=== PATIENT | female | born 1975 | race Caucasian/White ===

== ENCOUNTER 2022-05-12 07:05 | Outpatient (CLI) | payer BC, SELFPAY ==
--- NOTE | 2022-05-12 07:15 | CRLHL7_ITS ---
For Patients: As a result of the 21st Century Cures Act, medical imaging exams and procedure reports are released immediately into your electronic medical record. You may view this report before your referring provider. If you have questions, please contact your health care provider. BILATERAL BREAST MRI WITHOUT AND WITH GADOLINIUM CLINICAL HISTORY: 46-year-old female with elevated risk of breast cancer, prior biopsy demonstrating ADH, status post excision, family history INDICATION FOR BREAST MRI: Screening breast MRI in this high-risk woman. COMPARISON STUDIES: Breast MRI 04/30/2021, mammogram 10/27/2021 CONTRAST: 15 cc of dotarem TECHNIQUE: The patient was positioned prone using a breast coil. Multiple imaging sequences were obtained using 1-1.5 mm thick slices with no gap. The image sequences include T2-weighted STIR in the axial plane, T1-weighted nonfat-saturated gradient echo in the axial plane, pre- and post-contrast T1-weighted FLASH 3D with fat suppression in the axial plane, and T1-weighted FLASH high resolution 3D with fat suppression in the sagittal plane. Image post-processing was performed on a [employer] workstation. Complex 3D rendering including maximum intensity projections (MIPS) and volumetric renderings were obtained to optimize visualization of the extent of pathology and relationship to the nipple, skin, and chest wall. This aids in determining feasibility of breast conservation surgery. Subtraction, multiplanar reconstruction, mean curve determination, and angiogenesis mapping were also performed. The study was technically adequate. FINDINGS: Amount of Fibroglandular Tissue: Heterogeneous fibroglandular tissue. Breast Background Enhancement: Moderate RIGHT Breast: No suspicious areas of enhancement. LEFT Breast: No suspicious areas of enhancement. Artifact from a biopsy marker clip is present. Lymph Nodes: No adenopathy. IMPRESSIONS AND RECOMMENDATIONS: Benign, there is no MRI evidence of malignancy. Continue annual screening mammography and as clinically indicated screening breast MRI. BI-RADS: 2 Dictated by Pili Riggs MD @ 05/13/2022 8:41:31 AM (Electronically Signed)
== END 2022-05-12 07:06 | disposition home or self-care (01) ==
PROVIDERS: PCP Physician Assistant Medical; Visit Provider Physician Assistant Medical
DX: Z12.31 Encounter for screening mammogram for malignant neoplasm of breast (principal); Z91.89 Other specified personal risk factors, not elsewhere classified
CPT/HCPCS: 77049; A9575

== ENCOUNTER 2022-07-06 07:05 | Outpatient (CLI) | payer BC, SELFPAY ==
--- NOTE | 2022-07-06 07:15 | CRLHL7_ITS ---
For Patients: As a result of the Century Cures Act, medical imaging exams and procedure reports are released immediately into your electronic medical record. You may view this report before your referring provider. If you have questions, please contact your health care provider. Indication: Liver mass. Comparison: MRI abdomen 07/01/2021 Technique: MRI of the abdomen was performed with the following sequences: axial and coronal T2 weighted, axial T2 fat saturated, axial diffusion, axial T1 in and out of phase axial and coronal 3D T1 weighted before and after intravenous contrast administration. Contrast: 15 mL Dotarem Findings: Liver: Noncirrhotic morphology. Subtle 1.5 cm segment 8 lesion best seen on T1 in phase imaging (series 6, image 16) as well as on equilibrium phase postcontrast imaging (series 20, image 29), less conspicuous than on prior examinations. No new enhancing liver lesions. Scattered stable benign-appearing tiny cysts. Gallbladder: Unremarkable. Biliary system: No biliary distention, filling defect, mass or stricture. Pancreas: Normal caliber main pancreatic duct. No discrete pancreatic lesions. Other abdominal organs: Spleen, kidneys, and adrenal glands are normal. Bone marrow signal: Stable vertebral body hemangiomas. Other findings: No lymphadenopathy or ascites Impression: 1. Stable subtle segment 8 lesion with indeterminate but benign-appearing imaging features, stable since 05/05/2020. Dictated by Flex Hutchinson MD @ 07/09/2022 10:13:32 AM (Electronically Signed)
== END 2022-07-06 07:06 | disposition home or self-care (01) ==
LOC: MRI 07:06
PROVIDERS: PCP Physician Assistant Medical; Visit Provider Physician Assistant Medical
DX: R16.0 Hepatomegaly, not elsewhere classified (principal)
CPT/HCPCS: 74183; A9575

== ENCOUNTER 2023-07-01 17:10 | Outpatient (CLI) | payer BC, SELFPAY ==
--- NOTE | 2023-07-01 17:30 | MR_ITS ---
Patient: HANSEL FLETCHER Facility:?[facility] Patient ID:?[id number] Site Patient ID:?[id number]. 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 Ultrasound-guided biopsy of a mass at 5 o`clock in the LEFT breast in 2019 showed a benign fibroadenoma. INDICATION FOR BREAST MRI: High-risk screening breast MRI. COMPARISON STUDIES: Breast MRIs 05/12/2022 and 04/30/2021. Mammograms 10/29/2022 and 10/27/2021. CONTRAST: 20 mL Dotarem. TECHNIQUE: The patient was positioned prone using a breast coil. Multiple imaging sequences were obtained using 1-1.5 mm thick slices with no gap. The image sequences include T2-weighted STIR in the axial plane, T1-weighted nonfat-saturated gradient echo in the axial plane, pre- and post-contrast T1-weighted FLASH 3D with fat suppression in the axial plane, and T1-weighted FLASH high resolution 3D with fat suppression in the sagittal plane. Image post-processing was performed on a [employer] workstation. Complex 3D rendering including maximum intensity projections (MIPS) and volumetric renderings were obtained to optimize visualization of the extent of pathology and relationship to the nipple, skin, and chest wall. This aids in determining feasibility of breast conservation surgery. Subtraction, multiplanar reconstruction, mean curve determination, and angiogenesis mapping were also performed. The study was technically adequate. FINDINGS: Amount of Fibroglandular Tissue: Heterogeneous fibroglandular tissue. Breast Background Enhancement: Mild. RIGHT Breast: Scattered benign cysts. There is no suspicious mass or enhancement within the breast. LEFT Breast: In the retroareolar breast at middle depth, 8 cm posterior to the nipple there is a 1.2 x 1.2 x 1.1 cm irregular enhancing mass which demonstrates mixed kinetics including areas of fast initial and washout delayed phase enhancement. There is susceptibility artifact in the lower outer breast from a clip placed at the time of prior benign biopsy. Scattered benign cysts. Lymph Nodes: There is a LEFT axillary lymph node which appears to have thickened cortex measuring 0.8 cm in short axis. No abnormal morphology lymph nodes on the right. IMPRESSIONS AND RECOMMENDATIONS: 1. There is a 1.2 cm mass in the retroareolar LEFT breast at middle depth which is suspicious. Recommend targeted LEFT breast ultrasound and possible ultrasound-guided biopsy. If there is no sonographic correlate, then MRI-guided biopsy would be recommended. 2. No MRI evidence of malignancy in the RIGHT breast. 3. LEFT axillary lymph node appears to have a thickened cortex. Recommend targeted LEFT axillary ultrasound for further evaluation. BI-RADS Category 4: Suspicious Dictated by Desiree Padron MD @ 07/07/2023 11:26:38 AM jj/Dictated by: Desiree Padron MD @ 07/07/2023 11:46:00 AM Signed by:Elysia Padron MD @07/07/2023 3:44:24 PM (Electronic Signature)
== END 2023-07-01 17:11 | disposition home or self-care (01) ==
LOC: MRI 17:11
PROVIDERS: PCP Physician Assistant Medical; Visit Provider Physician Assistant Medical
DX: Z12.39 Encounter for other screening for malignant neoplasm of breast (principal); R59.9 Enlarged lymph nodes, unspecified
CPT/HCPCS: 77049; A9575

== ENCOUNTER 2023-07-19 10:57 | Outpatient (CLI) | payer BC, SELFPAY ==
--- NOTE | 2023-07-19 11:15 | US_ITS ---
Patient: HANSEL FLETCHER Facility:?[facility] Patient ID:?[id number] Site Patient ID:?[id number]. Site :?1975 Study:?US-Breast Procedure DR TURCIOS TO READ-07/19/2023 12:00:18 PM Ordering Physician:?ROLF BUSTAMANTE Final Report: ULTRASOUND-GUIDED BREAST BIOPSY AND POST-BIOPSY DIGITAL MAMMOGRAM FOR BIOPSY MARKER PLACEMENT CLINICAL HISTORY: Indeterminate nodule on MRI and ultrasound. COMPARISON STUDIES: Ultrasound 07/19/2023, MRI 07/01/2023. TECHNIQUE: Real-time ultrasound with image documentation was used for targeting the breast lesion. Core biopsy specimens were obtained using an automated gun with a 18- gauge biopsy needle. Post-biopsy CC and ML digital mammograms were obtained to document position of the biopsy marker. CONSENT and TIME OUT: The procedure, risks, and alternatives were explained to the patient and a consent was signed. [place] Protocol was followed including pre-procedure verification that relevant information/documentation was available, reviewed and properly matched to the patient; consent accurate and complete; and equipment and supplies available. Time Out was conducted just prior to starting procedure to verify the four required elements: patient identity, correct side/site marked (if applicable), procedure, relevant images/results properly labeled and displayed (if applicable). PROCEDURE: The patient was positioned supine on the ultrasound table. The breast was prepped with ChloraPrep. 8 cc of 1 percent lidocaine used for local anesthesia. Core samples were obtained. A sterile metal biopsy clip was placed percutaneously to chata the lesion position within the breast. The specimens were placed in 10% formalin and sent to the pathology department. Pressure was held on the biopsy site until all bleeding subsided. The skin incision was closed with Steri-Strips. An ice pack was positioned over the biopsy site. Post-biopsy instructions were reviewed with the patient, and a written copy was given to her. LATERALITY: LEFT breast. LESION: Hypoechoic solid nodule measuring 9 x 7 x 16 millimeters at 6 o`clock 4 cm from the nipple. SUSPICION FOR MALIGNANCY: Intermediate, probable fibroadenoma. NUMBER OF SAMPLES: 6. BIOPSY CLIP SHAPE: HydroMARK coil. PROXIMITY OF CLIP TO TARGET: Immediately adjacent to the lesion. IMPRESSION: Ultrasound-guided breast biopsy. When the pathology report is available, an addendum to this report will be made. ACR not applicable Dictated by Donovan Turcios MD @ 07/19/2023 12:07:24 PM cody/Dictated by: Donovan Turcios MD @ 07/19/2023 12:07:00 PM Signed by:?Donovan Turcios MD @07/19/2023 1:44:07 PM ADDENDUM: Pathology consistent with benign fibroadenoma. This is concordant. Resume screening protocol. Dictated by: Donovan Turcios MD @07/22/2023 11:04:54 AM / KANDICE:cody Signed by:?Donovan Turcios MD @07/22/2023 12:12:10 PM (Electronic Signature)
--- NOTE | 2023-07-19 11:15 | US_ITS ---
Patient: HANSEL FLETCHER Facility:?[facility] Patient ID:?[id number] Site Patient ID:?[id number]. Site :?1975 Study:?US-Breast Left DR TURCIOS TO READ-07/19/2023 11:59:38 AM Ordering Physician:?ROLF BUSTAMANTE Final Report: LEFT BREAST ULTRASOUND CLINICAL HISTORY: Indeterminate lesion on breast MRI. COMPARISON: MRI breast 07/01/2023. TECHNIQUE: Real-time ultrasound imaging of LEFT breast with imaging documentation. FINDINGS: Targeted sonogram LEFT breast 6 o`clock 4 cm from the nipple performed. In this location, there is a solid hypoechoic nodule measuring 9 x 7 x 16 mm. IMPRESSION: Indeterminate hypoechoic nodule left breast 6 o`clock 4 cm from the nipple corresponding to the MRI measuring 9 x 7 x 16 mm. RECOMMENDATIONS: Ultrasound-guided core needle biopsy will be performed subsequently. BI-RADS Category 4: Suspicious Dictated by Donovan Turcios MD @ 07/19/2023 12:05:47 PM PT/Dictated by: Donovan Turcios MD @ 07/19/2023 12:05:00 PM Signed by:?Donovan Turcios MD @07/19/2023 1:44:06 PM (Electronic Signature)
--- NOTE | 2023-07-19 12:00 | MM_ITS ---
Patient: HANSEL FLETCHER Facility:?[facility] Patient ID:?[id number] Site Patient ID:?[id number]. Site :?1975 Study:?XRay-Breast Left 2D w/ CAD POST CLIP PLACEMENT-07/19/2023 12:01:18 PM Ordering Physician:?Misti Wallace Final Report: PLEASE SEE ULTRASOUND-GUIDED LEFT BREAST BIOPSY PERFORMED SAME DAY CRL:cody ross/Dictated by: Donovan Smith MD @ 07/19/2023 12:07:00 PM Signed by:?Donovan Smith MD @07/19/2023 1:44:09 PM (Electronic Signature)
== END 2023-07-19 10:58 | disposition home or self-care (01) ==
LOC: US 10:58
PROVIDERS: PCP Physician Assistant Medical; Visit Provider Physician Assistant Medical
DX: N63.20 Unspecified lump in the left breast, unspecified quadrant (principal); D24.2 Benign neoplasm of left breast
CPT/HCPCS: 19083; 76642; 77065; 88305; A4648; A4649

== ENCOUNTER 2024-01-06 17:17 | Emergency (ER) | payer BC, SELFPAY ==
[2024-01-06] VITALS (13 sets, daily range): BP systolic 134–156; BP diastolic 89–117; PULSE 88–101; RESP 18; TEMP 37.1; O2SAT 98–100; BMI 31.0
--- NOTE | 2024-01-06 17:32 | CRLHL7_ITS ---
For Patients: As a result of the Century Cures Act, medical imaging exams and procedure reports are released immediately into your electronic medical record. You may view this report before your referring provider. If you have questions, please contact your health care provider. INDICATION: Acute stroke, arm and face tingling. TECHNIQUE: CTA neck with contrast bolus tracking, 3D angiographic rendering using maximum intensity projection (MIP) and images permanently archived. FINDINGS: There is no significant carotid artery stenosis or dissection. There is no significant vertebral artery stenosis or dissection. Multiple indeterminate thyroid nodules are present, largest on the right measuring approximately 16 millimeters. The cervical spine is in normal alignment. IMPRESSION: 1. No significant carotid or vertebral artery stenosis or dissection. 2. Indeterminate thyroid nodules with the largest on the right measuring approximately 16 millimeters. Recommend ultrasound for further evaluation. Please note that all CT scans at this facility use dose modulation, iterative reconstruction, and/or weight-based dosing when appropriate to reduce radiation dose to as low as reasonably achievable. Dictated by Ion Belcher MD @ 01/07/2024 12:00:37 AM (Electronically Signed)
--- NOTE | 2024-01-06 17:32 | CRLHL7_ITS ---
For Patients: As a result of the Century Cures Act, medical imaging exams and procedure reports are released immediately into your electronic medical record. You may view this report before your referring provider. If you have questions, please contact your health care provider. INDICATION: Acute stroke, arm and face tingling. TECHNIQUE: CTA head with contrast bolus tracking, 3D angiographic rendering using maximum intensity projection (MIP) and images permanently archived. FINDINGS: There is normal opacification of the intracranial vasculature. There is no large vessel occlusion. No aneurysm is identified. IMPRESSION: Unremarkable head CTA. Please note that all CT scans at this facility use dose modulation, iterative reconstruction, and/or weight-based dosing when appropriate to reduce radiation dose to as low as reasonably achievable. Dictated by Ion Belcher MD @ 01/06/2024 11:58:08 PM (Electronically Signed)
--- NOTE | 2024-01-06 17:32 | CRLHL7_ITS ---
For Patients: As a result of the Century Cures Act, medical imaging exams and procedure reports are released immediately into your electronic medical record. You may view this report before your referring provider. If you have questions, please contact your health care provider. INDICATION: STROKE SYMPTOMS, HX STROKE. ARM AND FACE TINGLING. TECHNIQUE: CT head without contrast. COMPARISON: MRI brain dated 03/30/2019. FINDINGS: CSF spaces: Within normal limits for age. Brain parenchyma and extra-axial spaces: Small focus of hypoattenuation corresponding to the previously visualized left posterior frontal chronic infarct. The mojica-white differentiation is otherwise normal. No sign of acute ischemia. No sign of mass, hemorrhage, or midline shift. No extra-axial fluid collection. Skull base and calvarium: The mastoid air cells demonstrate no acute or significant findings. Moderate left sphenoid sinus mucosal thickening. The visualized orbits are grossly unremarkable. No skull fractures. IMPRESSION: No sign of acute ischemia or intracranial hemorrhage. Please note that all CT scans at this facility use dose modulation, iterative reconstruction, and/or weight-based dosing when appropriate to reduce radiation dose to as low as reasonably achievable. Dictated by Markus Cerrato MD @ 01/06/2024 6:23:43 PM (Electronically Signed)
--- NOTE | 2024-01-06 17:41 | ED_ITS ---
HPI - General Adult General Chief complaint: Neuro Symptoms/Altered Deficit Stated complaint: stroke symptoms Time Seen by Provider: 01/06/24 17:35 Source: patient Mode of arrival: ambulatory Limitations: no limitations History of Present Illness HPI narrative: 48-year-old female with a history of ischemic stroke a few years ago presents today with left-sided tingling and numbness. Patient states that approximately 1/2 hour ago she came home from work in all of a sudden the left side of her face began to feel tingly it went into her left arm. She sat down to grab her phone to call her significant other in her hand felt like her fingers were all swollen and it was not moving properly. She was able to dial. She denies weakness of the upper extremity or the lower extremity. She denies changes in her speech, denies confusion blurry vision or changes in her hearing. She states that her previous stroke started out in a similar fashion with tingling in her left face. She currently takes lisinopril for blood pressure control, atorvastatin and baby aspirin. She also takes hydroxyzine for anxiety. There is no family history of strokes. Patient currently still symptomatic. Review of Systems Status of ROS: Reports: 10 or more systems reviewed and unremarkable except as noted in History and below [facility] Social History Smoking Status: Never smoker How often do you have a drink containing alcohol: never How often do you have six or more drinks on one occasion: Never AUDIT-C Alcohol total score: 0 Non-prescribed substance use: denies use service: No Exam Narrative: Exam Narrative: Well-nourished well-developed patient in no acute distress. Alert and oriented. Answers questions appropriately. Mood and affect are appropriate. Thoughts are goal oriented and rational. No tangential or magical thinking noted. Patient speaks in full sentences without needing to catch their breath. No slurred speech. No word-finding difficulty. Normal facial symmetry. HEENT: Normocephalic atraumatic. Pupils are equally round reactive to light. Extraocular muscles are intact. Conjunctivae are moist without any icterus noted. Moist mucous membranes. Posterior pharynx is normal. Neck is soft without any lymphadenopathy or thyromegaly. No masses are appreciated. Cardiovascular: Heart is regular rate and rhythm S1 and S2 are present without any murmurs. Lungs: Clear to auscultation bilaterally no wheezes rhonchi or rales are apprec iated. Patient takes deep breaths without any discomfort. Abdomen: Soft and nontender nondistended with normal bowel sounds. No guarding or rebound. No masses or organomegaly appreciated. Extremities: Bilateral lower extremities are without edema. Normal DP and PT pulses. Skin: Well perfused without any obvious rashes. Strength is 5/5 of the upper and lower extremities. 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 Reflexes are 2+ and symmetric at the knees. Cranial nerves 3-12 are normal. [id number]-[id number] is normal. There is no nystagmus either horizontally or vertically. Gait is normal. Const: Vital Signs, click to edit/add: Vital Signs - 24 hr 01/06/24 17:25 01/06/24 17:32 Temperature 98.8 F Pulse Rate [Pulse Oximeter] 93 Respiratory Rate 18 Blood Pressure [Ri ght Upper Arm] 156/93 H Pulse Oximetry 99 98 Oxygen Delivery Me thod Room Air Course Course ED Course: After initial examination which was unremarkable, patient went straight to head CT. Dr. Montalvo, neurology at [place], was aware of the patient and she was able to view the images as soon as they were done. There is no evidence of any occlusion noted on CTA, head CT unremarkable. Dr. Montalvo recommends that the patient be transferred to [place] for MRI as we do not have that capability today or tomorrow. EKG, read by me, shows sinus tachycardia with a pulse of 104, incomplete right bundle-branch block. CBC is normal. Chemistries are normal. LFTs are unremarkable. Normal troponin. Normal CRP. Negative test. TSH pending. I did re-evaluate the patient after her imaging, she stated that her symptoms are getting better. Aspirin 325 mg p.o. given in the ED. 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 At that time she had paresthesia over the right face arm and leg as well as word finding difficulty. She was treated with IV thrombolysis at that time. Of note, word-finding difficulty was not endorsed with today's event. Vital Signs Vital signs: Initial Vital Signs Temperature 98.8 F 01/06/24 17:25 Temperature Source Temporal Artery Scan 01/06/24 17:25 Pulse Rate 93 01/06/24 17:25 Pulse Rhythm Regular 01/06/24 17:25 Respiratory Rate 18 01/06/24 17:25 Blood Pressure 156/93 H 01/06/24 17:25 Blood Pressure Mean 114 H 01/06/24 17:25 Blood Pressure Position Sitting 01/06/24 17:25 Pulse Oximetry 99 01/06/24 17:25 Oxygen Delivery Method Room Air 01/06/24 17:25 Vital Signs Temperature 98.8 F 01/06/24 17:25 Pulse Rate 93 01/06/24 17:25 Respiratory Rate 18 01/06/24 17:25 Blood Pressure 156/93 H 01/06/24 17:25 Pulse Oximetry 99 01/06/24 17:25 Oxygen Delivery Method Room Air 01/06/24 17:25 Temperature 98.8 F 01/06/24 17:25 Pulse Rate 93 01/06/24 17:25 Respiratory Rate 18 01/06/24 17:25 Blood Pressure 156/93 H 01/06/24 17:25 Pulse Oximetry 98 01/06/24 17:32 Oxygen Delivery Method Room Air 01/06/24 17:25 Medical Decision Making MDM Narrative Medical decision making narrative: 48-year-old female history of stroke presenting with stroke-like symptoms. Patient will be transferred to [facility] for further management at this time. No anticoagulants aside from increased dose of aspirin was recommended per Dr. Montalvo at this time. Medical Records Medical records reviewed: Yes I reviewed the patient's medical records Lab Data Lab results reviewed: Yes I reviewed the patient's lab results Labs: Lab Results 01/06/24 01/06/24 Range/Units 17:30 17:55 WBC 8.01 (4.50-11.00) K/uL RBC 4.86 (4.00-5.20) m/uL Hgb 14.1 (12.0-16.0) gm/dL Hct 43.9 (33.0-51.0) % MCV 90 (80-100) fL MCH 29 (26-34) pg MCHC 32 (32-36) gm/dL RDW Coeff of Emily 13.5 (11.5-15.5) % Plt Count 337 (140-440) K/uL Neut % (Auto) 50.4 (42.0-72.0) % Lymph % (Auto) 40.2 (20-44) % Edmunds % (Auto) 6.6 (0.0-11.0) % Eos % (Auto) 1.9 (0.0-7.0) % Baso % (Auto) 0.7 (0.0-3.0) % Neut # (Auto) 4.03 (1.7-7.0) K/uL Lymph # (Auto) 3.22 H (0.90-2.90) K/uL Edmunds # (Auto) 0.50 (0.00-0.90) K/UL Eos # (Auto) 0.15 (0.00-0.50) K/uL Baso # (Auto) 0.06 (0.00-0.30) K/uL Abs Immat Gran (auto) 0.02 (0.00-0.30) K/uL Imm/Tot Granulo (auto) 0.2 % Sodium 138 (135-149) mmol/L Potassium 3.9 (3.6-5.1) mmol/L Chloride 103 (96-114) mmol/L Carbon Dioxide 23 (20-32) mmol/L Anion Gap 12 (7-15) mEq/L BUN 22 (5-24) mg/dL Creatinine 0.7 (0.5-1.5) mg/dL Estimated Creat Clear 104.95 Estimated GFR 108 ml/min Glucose 103 (60-115) mg/dL Lactate 0.6 (0.5-1.9) mmol/L Calcium 9.6 (8.4-10.6) mg/dL Magnesium 2.3 (1.5-2.6) mg/dL Total Bilirubin 0.8 (0.1-1.5) mg/dL Direct Bilirubin 0.2 (0.0-0.5) mg/dL AST 34 (12-35) U/L ALT 40 H (4-35) U/L Alkaline Phosphatase 82 (40-150) U/L Troponin I < 0.01 L (0.01-0.04) ng/mL C-Reactive Protein < 0.5 L (0.5-1.0) mg/dL Total Protein 8.5 H (6.0-8.3) g/dL Albumin 5.2 H (3.3-5.0) g/dL Urine HCG, Qual Negative (Negative) Imaging Data CT scan - head: Attestation: I have reviewed the pertinent imaging results. Radiologist's impression: CT head without contrast. COMPARISON: MRI brain dated 03/30/2019. FINDINGS: CSF spaces: Within normal limits for age. Brain parenchyma and extra-axial spaces: Small focus of hypoattenuation corresponding to the previously visualized left posterior frontal chronic infarct. The mojica-white differentiation is otherwise normal. No sign of acute ischemia. No sign of mass, hemorrhage, or midline shift. No extra-axial fluid collection. Skull base and calvarium: The mastoid air cells demonstrate no acute or significant findings. Moderate left sphenoid sinus mucosal thickening. The visualized orbits are grossly unremarkable. No skull fractures. IMPRESSION: No sign of acute ischemia or intracranial hemorrhage. Head CTA: Attestation: I have reviewed the pertinent imaging results. Radiologist's impression: Preliminary Report: COMPARISON: None. IMPRESSION: CTA head: Unremarkable. No sign of occlusion or significant aneurysm. CTA neck: Unremarkable. No sign of dissection or significant stenosis. Neck CTA: Attestation: I have reviewed the pertinent imaging results. Radiologist's impression: Preliminary Report: COMPARISON: None. IMPRESSION: CTA head: Unremarkable. No sign of occlusion or significant aneurysm. CTA neck: Unremarkable. No sign of dissection or significant stenosis. ECG Data Attestation: I personally reviewed and interpreted this ECG as follows: Discharge Plan Discharge Clinical Impression: Stroke-like symptoms Patient Disposition: [facility] Condition: Stable Follow Up/Referrals: Misti Wallace PA-C [Primary Care Provider] - Stand Alone Forms: [employer] Info Instructions
[2024-01-06 17:55] LABS: Lactate* 0.6 mmol/L (0.5-1.9)
[2024-01-06 18:00] LABS: Basophils Absolute Auto 0.06 K/uL (0.00-0.30); Basophils Percent Auto 0.7 % (0.0-3.0); Eosinophils Absolute Auto 0.15 K/uL (0.00-0.50); Eosinophils Percent Auto 1.9 % (0.0-7.0); Hematocrit 43.9 % (33.0-51.0); Hemoglobin* 14.1 gm/dL (12.0-16.0); Immature Granulocytes Abs Auto 0.02 K/uL (0.00-0.30); Immature Granulocytes Pct Auto 0.2 %; Lymphocytes Absolute Auto 3.22 K/uL (0.90-2.90); Lymphocytes Percent Auto 40.2 % (20-44); Mean Corpuscular HGB Conc 32 gm/dL (32-36); Mean Corpuscular Hemoglobin 29 pg (26-34); Mean Corpuscular Volume 90 fL (80-100); Monocytes Percent Auto 6.6 % (0.0-11.0); Neutrophils Absolute Auto 4.03 K/uL (1.7-7.0); Neutrophils Percent Auto 50.4 % (42.0-72.0); Platelet Count* 337 K/uL (140-440); RDW Coefficient of Variation % 13.5 % (11.5-15.5); Red Blood Count 4.86 m/uL (4.00-5.20); White Blood Count* 8.01 K/uL (4.50-11.00)
[2024-01-06 18:02] LABS: Albumin* 5.2 g/dL (3.3-5.0); Chloride* 103 mmol/L (96-114); Slide Review Reflex No
[2024-01-06 18:03] LABS: Potassium* 3.9 mmol/L (3.6-5.1); Sodium* 138 mmol/L (135-149)
[2024-01-06 18:05] LABS: Creatinine* 0.7 mg/dL (0.5-1.5); Est. Creatinine Clearance* 104.95; Estimated Glomerular Filt Rate 108 ml/min
[2024-01-06 18:05] LABS: Ur HCG Qualitative* Negative (Negative)
[2024-01-06 18:06] LABS: Alanine Aminotransferase* 40 U/L (4-35); Alkaline Phosphatase* 82 U/L (40-150); Anion Gap 12 mEq/L (7-15); Aspartate Amino Transferase* 34 U/L (12-35); Bilirubin Direct* 0.2 mg/dL (0.0-0.5); Bilirubin Total* 0.8 mg/dL (0.1-1.5); Blood Urea Nitrogen* 22 mg/dL (5-24); Calcium* 9.6 mg/dL (8.4-10.6); Carbon Dioxide* 23 mmol/L (20-32); Glucose* 103 mg/dL (60-115); Total Protein* 8.5 g/dL (6.0-8.3)
[2024-01-06 18:07] LABS: Magnesium* 2.3 mg/dL (1.5-2.6)
[2024-01-06 18:14] LABS: C Reactive Protein* < 0.5 mg/dL (0.5-1.0)
[2024-01-06 18:18] LABS: Troponin I* < 0.01 ng/mL (0.01-0.04)
== END 2024-01-06 20:43 | disposition short-term general hospital (02) ==
PROVIDERS: Emergency Provider Family Medicine; PCP Physician Assistant Medical
DX: R29.818 Other symptoms and signs involving the nervous system (principal)
CPT/HCPCS: 36415; 70450; 70496; 70498; 80048; 80076; 81025; 82962; 83605; 83735; 84443; 84484; 85025; 86140; 93005; 94761; 99285; 99291; Q9967

== ENCOUNTER 2024-01-06 20:40 | Outpatient (CLI) | payer BC, SELFPAY | END 2024-01-06 20:41 | disposition home or self-care (01) | LOC: AMB 01-08 06:40 | PROVIDERS: PCP Physician Assistant Medical; Visit Provider Family Medicine | DX: R29.90 Unspecified symptoms and signs involving the nervous system (principal) | CPT/HCPCS: A0425; A0427 ==

== ENCOUNTER 2024-07-02 07:02 | Outpatient (CLI) | payer BC, SELFPAY ==
--- NOTE | 2024-07-02 07:15 | CRLHL7_ITS ---
For Patients: As a result of the Century Cures Act, medical imaging exams and procedure reports are released immediately into your electronic medical record. You may view this report before your referring provider. If you have questions, please contact your health care provider. BILATERAL BREAST MRI WITHOUT AND WITH GADOLINIUM CLINICAL HISTORY: 48-year-old female with elevated risk of breast cancer due to prior breast biopsy demonstrating ADH. Strong family history. INDICATION FOR BREAST MRI: Screening breast MRI in this high-risk woman. COMPARISON STUDIES: Mammogram 10/29/2022. CONTRAST: 23 mL Dotarem IV. TECHNIQUE: The patient was positioned prone using a breast coil. Multiple imaging sequences were obtained using 1-1.5 mm thick slices with no gap. The image sequences include T2-weighted STIR in the axial plane, T1-weighted nonfat-saturated gradient echo in the axial plane, pre- and post-contrast T1-weighted FLASH 3D with fat suppression in the axial plane, and T1-weighted FLASH high resolution 3D with fat suppression in the sagittal plane. Image post-processing was performed on a [employer] workstation. Complex 3D rendering including maximum intensity projections (MIPS) and volumetric renderings were obtained to optimize visualization of the extent of pathology and relationship to the nipple, skin, and chest wall. This aids in determining feasibility of breast conservation surgery. Subtraction, multiplanar reconstruction, mean curve determination, and angiogenesis mapping were also performed. The study was technically adequate. FINDINGS: Amount of Fibroglandular Tissue: Heterogeneous fibroglandular tissue. Breast Background Enhancement: Moderate. RIGHT Breast: There are no suspicious areas of enhancement. LEFT Breast: Artifact from biopsy marker clips is present at sites or prior benign biopsy. There are no suspicious areas of enhancement. Lymph Nodes: No adenopathy. IMPRESSIONS AND RECOMMENDATIONS: Benign, there is no MRI evidence of malignancy. Continue annual screening mammography. Patient is past due for screening mammography, as the last available comparison is from October 2022. Continue annual supplemental screening with breast MRI as clinically indicated. BI-RADS Category 2: Benign Dictated by Pili Riggs MD @ 07/03/2024 3:21:39 PM cody/Dictated by: Pili Riggs MD @ 07/03/2024 3:22:00 PM (Electronically Signed)
== END 2024-07-02 07:03 | disposition home or self-care (01) ==
LOC: MRI 07:03
PROVIDERS: PCP Physician Assistant Medical; Visit Provider Physician Assistant Medical
DX: Z12.39 Encounter for other screening for malignant neoplasm of breast (principal); Z80.3 Family history of malignant neoplasm of breast; Z91.89 Other specified personal risk factors, not elsewhere classified
CPT/HCPCS: 77049; A9575

== ENCOUNTER 2024-10-07 19:29 | Outpatient (CLI) | payer BC, SELFPAY ==
--- OUTSIDE RECORDS SUMMARY | 2024-10-08 00:05 | XMS_ITS | Clinical Summary ---
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 90 Tablet 3 12/02/19 24 Active hydrOXYzine HCL (ATARAX) 25 mg tabletIndications: Anxiety Take 1 Tablet (25 mg) by mouth every 6 hours if needed for Anxiety. 25 Tablet 1 12/02/19 24 Active cetirizine (ZYRTEC) 10 mg tablet Take 10 mg by mouth once daily if needed for Allergy Symptoms. Active multivitamin (MVI) tablet Take 1 Tablet by mouth once daily. Active lisinopriL (PRINIVIL; ZESTRIL) 30 mg tabletIndications: HTN (hypertension) Take 1 Tablet (30 mg) by mouth once daily. 01/14/20 24 Active rimegepant (NURTEC) 75 mg orally disintegrating tabletIndications: HTN (hypertension),Fam christiano with status migrainosus, not intractable, unspecified migraine type Place 75 mg on the tongue once daily if needed for Headache. 30 Tablet 5 01/09/20 24 Active ascorbic acid/multivit-min (EMERGEN-C ORAL) Take 1 Tablet by mouth once daily. Active LORazepam 0.5 mg tabIndications:Cla ustrophobia Take 1-2 Tablets (0.5-1 mg) by mouth one time for 1 dose. 2 Tablet 06/30/19 Active Additional Information Patient taking differently:0.5-1 mg Oral ONE TIME,only with MRIs, Reported on 08/21/2024 clopidogreL (Plavix) 75 mg tabletIndications: PFO (patent foramen ovale) (HC) 75mg daily for 6 months from procedure date (end date Nov 22) 94 Tablet 1 06/30/19 25 025 Active apixaban (Eliquis) 5 mg tabletIndications: Atrial fibrillation, unspecified type (HC) Take 1 Tablet (5 mg) by mouth two times daily. 180 Tablet 3 08/22/19 25 Active metoprolol tartrate 25 mg tabletIndications: PFO (patent foramen ovale) (HC),SVT (supraventricular tachycardia) (HC) Take 1 Tablet (25 mg) by mouth two times daily. 180 Tablet 3 08/22/19 25 Active Active Problems Problem Noted Date Diagnosed Date Paroxysmal atrial fibrillation 08/21/2024 Typical atrial flutter 08/21/2024 SVT (supraventricular tachycardia) 08/21/2024 History of cardioembolic cerebrovascular acciden t (CVA) 05/25/2024 PFO (patent foramen ovale) 03/20/2024 Ischemic stroke 01/06/2024 History of ischemic stroke 01/06/2024 Allergic rhinitis 01/06/2024 Migraine 01/06/2024 Anxiety 01/06/2024 Obesity (BMI 30.0-34.9) 01/06/2024 Colon polyp 09/19/2023 Overview (09/19/2023): Colonoscopy 09/2023 SSA, repeat in 5 years Hypertension Hyperlipidemia LDL goal <70 Resolved Problems Problem Noted Date Diagnosed Date Resolved Date Cerebral infarction due to e mbolism of left middle cerebral artery 04/03/2019 10/27/2021 Atypical hyperplasia of left breast 11/01/2018 10/27/2021 Atypical ductal hyperplasia of breast 10/09/2018 01/06/2024 Overview (01/06/2024): On Tamoxifen for prophylaxis Stopped in 2019 when she had the unexpected stroke. Cerebral infarction due to e mbolism of left middle cerebral artery 01/06/2024 Paresthesia of left upper and lower extremity 10/27/2021 Expressive aphasia 2 Tissue plasminogen activator (tPA) administered at other facility within 24 hours before current admission 2 Encounters Date Type Department Care Team Description 09/12/2024 Telephone [facility] [address] [phone] Ori Valles MD Prior Authorization 09/12/2024 Telephone [facility] [address] [phone] Ori Valles MD Referral 09/12/2024 Patient Outreach [facility] Care Management - Advanced Care Team [address] [place] [address] Emerita Degroot RN Complex Care Management (RN outreach attempt, Engagement Outreach, due to Self Referral/) 08/22/2024 Patient Outreach [facility] Care Management - Advanced Care Team [address] [place] [address] Emerita Degroot dosier operator Management (RN outreach attempt, Engagement Outreach, due to Payer Referral/) 08/21/2024 8:00 AM CDT Office Visit [facility] [address] [phone] Ori Valles MD CV Electrophysiology New (REFFERAL: EMILIO CASTELAN MD /DX: ATRIAL FIBRILLATION, UNSPECIFIED TYPE /COMMNETS: POSSIBLE LOOP RECORDER /) 08/21/2024 Telephone [facility] [address] [phone] Ori Valles MD Questions (Fax sleep study info to [place] ) 08/21/2024 Travel 07/16/2024 2:00 PM CDT Ancillary Procedure [facility] [address] [place] [address] 07/16/2024 Travel from Last 3 Months Immunizations Immunization Administration Dates Next Due Influenza Virus, Unspecified 01/26/2017,01/15/20 14 Influenza, IIV4 01/21/2019,01/17/2018 Tdap 11/12/2022,08/02/2011 Family History Medical History Relation Name Comments Hypertension Brother Diabetes Father Hypertension Father Cancer-breast Mother dx age 56 Hypertension Mother Cancer-breast Paternal Aunt dx age post Cancer-colon No Family History Cancer-ovarian No Family History Cancer-prostate No Family History Stroke No Family History Relation Name Status Comments Brother Father Alive Mother Alive at age 50's Paternal Aunt Social History Tobacco Use Types Packs/Day Years Used Date Smoking Tobacco: Never Smokeless Tobacco: Never Tobacco Cessation:Counseling Given: Yes Comments:no exposure Alcohol Use Standard Drinks/Week Comments Not Currently 0 (1 standard drink = 0.6 oz pur e alcohol) PHQ-2 Answer Date Recorded PHQ-2 TOTAL SCORE 0 12/02/2023 Social Connections Answer Date Recorded Do you often feel lonely or isolated from those around you? 0 01/07/2024 Financial Resource Strain Answer Date R ecorded Difficulty of Paying Living Expenses 3 01/07/2024 Difficulty of Paying Living Expenses Not on file 01/07/2024 Food Insecurity Answer Date Recorded Do you worry your food will run out before you are able to buy more? 1 01/07/2024 Transportation Needs Answer Date Record ed Does lack of transportation keep you from medica l appointments? 1 01/07/2024 Does lack of transportation keep you from work, meetings or getting things that you need? 1 01/07/2024 Housing Stability Answer Date Recorded What is your housing situation today? 1 01/07/2024 Interpersonal Safety Answer Date Record ed Are you being hit, kicked, p ushed or yelled at (see row info)? No 05/25/2024 Interpersonal Safety Abuse 12 - 18 Not on file 05/25/2024 Interpersonal Safety Ambulatory Vulnerability No t on file 05/25/2024 Utilities Answer Date Recorded Do you have trouble paying f or utilities (for example, heat, electricity, water, phone)? 1 01/07/2024 Comments No Sex and Gender Information Value Date Recorded Sex Assigned at Not on file Legal Sex Female 6:17 AM CLAIM INVESTIGATOR Gender Identity Not on file Sexual Orientation Not on file Obstetrics History Last Filed Vital Signs Vital Sign Reading Time Taken Comments Blood Pressure 122/82 08/21/2024 7:39 AM CDT Pulse 76 08/21/2024 7:39 AM CDT Temperature 36.7 C (98 F) 05/25/2024 6:00 PM CLAIM INVESTIGATOR Respiratory Rate 16 05/25/2024 6:00 PM CLAIM INVESTIGATOR Oxygen Saturation 96% 08/21/2024 7:39 AM CDT Inhaled Oxygen Concentration - - Weight 109.3 kg (241 lb) 08/21/2024 7:39 AM CDT Height 175.3 cm (5' 9) 08/21/2024 7:39 AM CDT Body Mass Index 35.59 08/21/2024 7:39 AM CDT Plan of Treatment Health Maintenance Due Date Last Done Comments HIV for age 15-65 1992 Hepatitis B series for 19+ ( 1 of 3 - 19+ 3-dose series) 1996 Pneumococcal series for age 6-49 (1 of 2 - PCV) 1996 COVID-19 vaccine series ( season) 2023 01/27/2022, 01/23/2021, 05/31/2020, Additional history exists Depression screening for age 12+ 12/01/2024 12/02/2023, 11/12/2022, 10/08/2020, Additional history exists Influenza Vaccine (Season Ended) 2024 01/21/2019, 01/17/2018, 01/26/2017, Additional history exists Mammogram for age 45-75 01/23/2025 01/24/20 24, 10/29/2022, 10/27/2021, Additional history exists BMI (ht and wt on same day) for age 18+ 08/21/2025 08/21/2024, 06/29/2024, 05/18/2024, Additional history exists Colonoscopy through age 75 09/15/202809/15, 09/16/2023, 09/16/2023 Lipids for age 45-75 01/06/2029 01/07/2024, 12/01/2023, 11/12/2022, Additional history exists Tetanus booster 11/12/2032 11/12/2022, 08/02/2011 Hepatitis C screening for ag e 18-79 Completed 10/27/2021 Tdap Completed 11/12/2022, 08/02/2011 Procedures Procedure Name Priority Date/Time Associated Diagnosis Comments ECHO TTE LIMITED WO CNTRST W COLOR W LTD DOPPLER W BUBBLE Routine 07/16/2024 2:13 PM CDT PFO (patent foramen ovale) (HC) XR MAMMO THERESA BILAT SCREEN Routine 01/24/2024 7:16 AM CDT Visit for screening mammogram LIPID PANEL Early AM 01/07/2024 7:08 AM CDT COLONOSCOPY SCREENING Routine 09/16/2023 7:24 AM CDT Screening for colon cancer ANTI HCV Routine 10/27/2021 11:26 AM CDT Need for hepatitis C screening test from Last 3 Months or Most Recently Relevant to Health Maintenance Results * ECHO TTE LIMITED WO CNTRST W COLOR W LTD DOPPLER W BUBBLE (07/16/2024 2:13 PM CDT) AORTIC VALVE MEAN PG 4 mmHg EJECTION FRACTION 59 % LVEDD 4.9 cm EJECTION FRACTION 55 - 60% Anatomical Region Laterality Modality Ultrasound 07/16/2024 1:47 PM CDT Narrative 07/16/2024 2:29 PM CDT ECHOCARDIOGRAM HANSEL FLETCHER : 1975 49 years Study Date: 07/16/2024 1:47:53 PM Gender: F BP: 134/79 mmHg Height: 175.00 cm BSA: 2.23 m Weight: 109.00 kg Tech: ELDER Referring MD: DAKOTA BANG Site: [facility] Reading Location: Mobile-OP Patient Location: Outpatient. Procedure: Limited 2D , Color Doppler, Spectral Doppler and 2D w/ Bubbles. Indication for study: PFO Closure History CVA Cardiac Rhythm: Regular.Study quality: Good. Imaging limitations: This study was subject to imaging limitations due to a prominent lung artifact. Final Impressions: Limited Echocardiogram performed 1. Normal left ventricular size, normal wall thickness, normal global systolic function, calculated EF of 59 %. 2. Right ventricular cavity size is normal, global systolic RV function is normal. 3. An ASD/PFO occluder device is seen on the atrial septum. 4. Negative bubble study. Chamber Sizes and Function Normal left ventricular size, normal wall thickness, normal global systolic function, calculated EF of 59 %. No resting regional wall motion abnormality visualized. Left atrial size is normal. Left atrial pressure is normal. Right ventricular cavity size is normal, global systolic RV function is normal. RV wall thickness is normal. The right atrium is normal. Right atrial volume index is 14 ml/m . Right atrial area is 13 cm . The pulmonary artery is of normal size and origin. The sinus of Valsalva is normal sized. The ascending aorta is normal sized. Valves, RV Pressures and Diastolic Function The aortic valve is normal in structure and trileaflet, no stenosis and no regurgitation. The mitral valve is normal in structure, no mitral regurgitation. The tricuspid valve is normal in structure and not evident tricuspid regurgitation. The pulmonic valve is normal. No pulmonic regurgitation is present on color flow. Masses, Effusion, Shunts There is no pericardial effusion. The inferior vena cava is normal sized, respiratory size variation greater than 50%. An ASD/PFO occluder device is seen on the atrial septum. No left to right shunting was detected by limited color flow Doppler interrogation of the interatrial septum. Agitated saline injection showed no right to left shunt at rest or following Valsalva manuever. MEASUREMENTS AND CALCULATIONS 2-D Measurements and LV Function: LVID (d) 4.9 cm Planimetered EF 59 % LVID (s) 3.3 cm LV FS% (2D) 33 % IVS (d) 0.9 cm LVOT diameter 2.5 cm LVPW (d) 0.9 cm HR 87 bpm Ao Sinus 3.4 cm LA Vol index 27 ml/m2 Asc Ao 3.0 cm RA Vol index 14 ml/m2 LA 3.7 cm RA area 13 cm RV Basal Diam 3.6 cm RV Mid Diam 3.1 cm Diastology: Mitral Tissue Doppler E Peak 0.74 m/s e', Septum 0.08 m/s A Peak 0.65 m/s e', Lateral 0.15 m/s E/A 1.1 E/e' Average 6.47 DT 196 msec Aortic Valve: Vmax 1.3 m/s CHRISTIANO (V) 4.08 cm VTI 0.24 m CHRISTIANO (I) 4.09 cm LVOT V max 1.1 m/s Max PG 7 mmHg LVOT VTI 0.20 m Mean PG 4 mmHg SV 100 ml Dim Index 0.82 SV index 45 ml/m CO 8.7 l/min AV Ejection Time 0.27 sec CI 3.9 l/min/m AV Flow Rate 375 ml/s Mitral Valve: MVA 3.9 cm MV P 1/2 57 msec . This study was interpreted by an [facility] accredited facility. Final Procedure Note Mirza Morales MD - 07/16/2024 ECHOCARDIOGRAM HANSEL FLETCHER : 1975 49 years Study Date: 07/16/2024 1:47:53 PM Gender: F BP: 134/79 mmHg Height: 175.00 cm BSA: 2.23 m Weight: 109.00 kg Tech: ELDER Referring MD: DAKOTA BANG Site: [facility] Reading Location: Mobile-OP Patient Location: Outpatient. Procedure: Limited 2D , Color Doppler, Spectral Doppler and 2D w/Bubbles. Indication for study: PFO Closure History CVA Cardiac Rhythm: Regular.Study quality: Good. Imaging limitations: This study was subject to imaging limitations due toa prominent lung artifact. Final Impressions: Limited Echocardiogram performed 1. Normal left ventricular size, normal wall thickness, normal globalsystolic function, calculated EF of 59 %. 2. Right ventricular cavity size is normal, global systolic RV functionis normal. 3. An ASD/PFO occluder device is seen on the atrial septum. 4. Negative bubble study. Chamber Sizes and Function Normal left ventricular size, normal wall thickness, normal globalsystolic function, calculated EF of 59 %. No resting regional wall motionabnormality visualized. Left atrial size is normal. Left atrial pressureis normal. Right ventricular cavity size is normal, global systolic RVfunction is normal. RV wall thickness is normal. The right atrium isnormal. Right atrial volume index is 14 ml/m . Right atrial area is 13cm . The pulmonary artery is of normal size and origin. The sinus ofValsalva is normal sized. The ascending aorta is normal sized. Valves, RV Pressures and Diastolic Function The aortic valve is normal in structure and trileaflet, no stenosis and noregurgitation. The mitral valve is normal in structure, no mitralregurgitation. The tricuspid valve is normal in structure and not evidenttricuspid regurgitation. The pulmonic valve is normal. No pulmonicregurgitation is present on color flow. Masses, Effusion, Shunts There is no pericardial effusion. The inferior vena cava is normal sized,respiratory size variation greater than 50%. An ASD/PFO occluder device isseen on the atrial septum. No left to right shunting was detected bylimited color flow Doppler interrogation of the interatrial septum.Agitated saline injection showed no right to left shunt at rest orfollowing Valsalva manuever. MEASUREMENTS AND CALCULATIONS 2-D Measurements and LV Function: LVID (d) 4.9 cm Planimetered EF 59 % LVID (s) 3.3 cm LV FS% (2D) 33 % IVS (d) 0.9 cm LVOT diameter 2.5 cm LVPW (d) 0.9 cm HR 87 bpm Ao Sinus 3.4 cm LA Vol index 27 ml/m2 Asc Ao 3.0 cm RA Vol index 14 ml/m2 LA 3.7 cm RA area 13 cm RV Basal Diam 3.6 cm RV Mid Diam 3.1 cm Diastology: Mitral Tissue Doppler E Peak 0.74 m/s e', Septum 0.08 m/s A Peak 0.65 m/s e', Lateral 0.15 m/s E/A 1.1 E/e' Average 6.47 DT 196 msec Aortic Valve: Vmax 1.3 m/s CHRISTIANO (V) 4.08 cm VTI 0.24 m CHRISTIANO (I) 4.09 cm LVOT V max 1.1 m/s Max PG 7 mmHg LVOT VTI 0.20 m Mean PG 4 mmHg SV 100 ml Dim Index 0.82 SV index 45 ml/m CO 8.7 l/min AV Ejection Time 0.27 sec CI 3.9 l/min/m AV Flow Rate 375 ml/s Mitral Valve: MVA 3.9 cm MV P 1/2 57 msec . This study was interpreted by an [facility] accredited facility. Final Dakota Bang FILEMAKER DEVELOPER ECHO ORD Final Resul t * XR MAMMO THERESA BILAT SCREEN (01/24/2024 7:16 AM CDT) Anatomical Region Laterality Modality BREASTS, Breast Left, Breast Right Bilateral Mammography Impressions 01/24/2024 2:44 PM CDT There is no radiographic evidence for malignancy. Recommend annual mammograms. MAMMOGRAM ASSESSMENT: ACR 1 Negative PATIENTS: You will also receive a letter with your examination results in an easy to read format. If you have questions about your results, please contact your referring provider. Narrative 01/24/2024 2:44 PM CDT For Patients: As a result of the Century Cures Act, medical imaging exams and procedure reports are released immediately into your electronic medical record. You may view this report before your referring provider. If you have questions, please contact your health care provider. XR MAMMO THERESA BILAT SCREEN [[id number]] CLINICAL HISTORY: This is an asymptomatic 48 y.o. patient. INDICATION FOR EXAM: Mammogram Screening. TECHNIQUE: CC & MLO views were obtained. This study was evaluated with the assistance of Computer-Aided Detection. Breast Tomosynthesis was used in interpretation. COMPARISON FILM: Yes 10/29/22 Cinpost 10/27/21 Cinpost FINDINGS: The breasts are heterogeneously dense, which may obscure small masses. There are no dominant masses, suspicious micro calcifications or areas of architectural distortion. us Misti Wallace PA MAMMO Final R esult * Lipid Panel (01/07/2024 7:08 AM CDT) CHOLESTEROL,TOTAL 143 100 - 199 mg/dL 01/07/2024 7:49 AM CDT [facility] Comment: Cholesterol, Total Reference Ranges Desirable <200 mg/dL Borderline 200-239 mg/dL High >=240 mg/dL TRIGLYCERIDES 121 <150 mg/dL 01/07/2024 7:49 AM CDT [facility] HDL CHOLESTEROL 43 >40 mg/dL 7:49 AM CDT [facility] NON-HDL CHOLESTEROL 100 <145 mg/dl 01/07/2024 7:49 AM CDT [facility] CHOL/HDL RATIO 3.33 <4.50 01/07/2024 7:49 AM CDT [facility] LDL CHOLESTEROL 76 <=130 mg/dL 01/07/2024 7:49 AM CDT [facility] VLDL CHOLESTEROL 24 <=30 mg/dL 01/07/2024 7:49 AM CDT [facility] PROVIDER ORDERED STATUS RANDOM 01/07/2024 7:49 AM CDT [facility] Blood BLOOD SPECIMEN / Unknown Venipuncture / Unknown 01/07/2024 7:08 AM CDT 01/07/2024 7:21 AM CDT us Colton Ross MD CHEMISTRY Final Res ult [facility] [address] [place] [address], [place] * COLONOSCOPY (09/16/2023 7:56 AM CDT) 09/16/2023 7:56 AM CDT Narrative Transcriptions Christo Ramirez MD - 09/16/2023 8:36 AM CDT Patient Name: Hansel Fletcher Procedure Date: 09/16/2023 Gender: Female Date of : 1975 Admit Type: Outpatient Procedure: Colonoscopy Proceduralist: Christo Ramirez MD , Shell Larson (Nurse), Calista Hernandez RN (Nurse) Referring MD: Misti Wallace Indications/Pre-Op Diagnosis: Screening for colorectal malignant neoplasm, This is the patient's first colonoscopy Medications: Fentanyl 100 micrograms IV, Midazolam 4 mgIV Procedure Description: The patient had risks, benefits and alternatives explained to andgave informed consent. The patient had a stable cardiopulmonary status and judged an adequate candidate for conscious sedation. The endoscope [id number] was passed through the anus andadvanced to the cecum, identified by appendiceal orifice and ileocecal valve.The colonoscopy was performed without difficulty. The patient toleratedthe procedure well. The quality of the bowel preparation was good. The rectum was photographed. Complications: No immediate complications. Estimated Blood Loss & Specimen: Estimated blood loss: none. Specimen collected - Yes and sent to Laboratory Findings: A 3 mm polyp was found in the descending colon. The polyp wassessile. The polyp was removed with a cold snare. Resection and retrieval were complete. The exam was otherwise without abnormality. Impressions/Post-Op Diagnosis: - One 3 mm polyp in the descending colon, removed with a cold snare. Resected and retrieved. - The examination was otherwise normal. Recommendation: - Patient has a contact number available for emergencies. The signsand symptoms of potential delayed complications were discussed with the patient. Return to normal activities tomorrow. Written discharge instructions were provided to the patient. - Resume previous diet. - Continue present medications. - Await pathology results. - Repeat colonoscopy is recommended. The colonoscopy date will be determined after pathology results from today's exam become available for review. Moderate Sedation: A time out was performed before the procedure. Moderate (conscious) sedation was administered by the endoscopy nurse and supervised bythe endoscopist. The following parameters were monitored: oxygensaturation, heart rate, blood pressure, EKG, CO2, respiratory rate, adequacy of pulmonary ventilation and reponse to care. Please refer to the patient's medical record flowsheets and nursing notes for moderate sedation details. Total physician intraservice time was 16 minutes. Christo Ramirez MD 09/16/2023 8:35:48 AM This report has been signed electronically. Note Initiated On: 09/16/2023 7:56 AM Procedure Code(s): --- Professional --- 96992, Colonoscopy, flexible; with removalof tumor(s), polyp(s), or other lesion(s) bysnare technique Diagnosis Code(s): --- Professional --- Z12.11, Encounter for screening formalignant neoplasm of colon D12.4, Benign neoplasm of descending colon CPT copyright 2022 [employer]. All rights reserved. The codes documented in this report are preliminary and upon computer language coder reviewmay be revised to meet current compliance requirements. Scope In: 8:10:54 AM Scope Withdrawal Time 0 hours 10 minutes 40 seconds Scope Out: 8:24:39 AM us Christo Ramirez MD PROCEDURE ORD Final Res ult * ANTI HCV (10/27/2021 11:26 AM CDT) HEPATITIS C ANTIBODY Non-React matt Non-React matt 10/27/2021 9:23 PM CDT [facility] Comment:Antibodies to HCV no t detected; does not exclude the possibility of exposure to HCV. Blood BLOOD SPECIMEN / Unknown Venipuncture / Unknown 10/27/2021 11:26 AM CDT 10/27/2021 11:27 AM CDT Misti LEONARD SEND OUTS Final R esult [facility] [address] [place] [address], [place] from Last 3 Months or Most Recently Relevant to Health Maintenance Insurance [address] [place] [id number] [facility] Advance Directives * Full Code (Latest Code Status on File) Date Activated Date Inactivated Comments 05/25/2024 11:44 AM 05/25/2024 8:40 PM Question Answer Comments Code Status Discussion: Discussed * Full Code Date Activated Date Inactivated Comments 02/07/2024 11:26 AM 02/08/2024 2:14 AM Question Answer Comments Code Status Discussion: Unable to Assess Preferences, Provider to review later * Full Code Date Activated Date Inactivated Comments 01/06/2024 10:20 PM 01/08/2024 5:57 PM Question Answer Comments Code Status Discussion: Reviewed Preferences * Full Code Date Activated Date Inactivated Comments 03/30/2019 7:37 PM 04/01/2019 6:39 PM * Full Code Date Activated Date Inactivated Comments 11/01/2018 9:11 AM 11/01/2018 3:31 PM Care Teams Print Buyer Relationship Specialty Start Date End Date Misti Wallace PA [address] [place] [address] PCP - General Family Practice 06/09/16
--- NOTE | 2024-10-16 11:07 | W.PM.SLEEP ---
Sleep Study Details Details Interpreting Provider: Cata Date of Sleep Study: 10/07/24 Sleep Study Details: STUDY TYPE:? Home unattended ? BMI:? 36.9 ORDERING PROVIDER:? Cata INDICATION:? Concerns about sleep apnea ? SLEEP SUMMARY:? 596 minutes monitored RESPIRATORY SUMMARY:? AHI 6.7 per rule 1A, 4.6 per CMS guideline Low oxygen 89 Snoring 38.6% PERIODIC LIMB MOVEMENTS OF SLEEP:? Not recorded CARDIAC:? Range 53-101, mean 66.2 beats per minute IMPRESSION:? Mild obstructive sleep apnea RECOMMENDATION: Treatment options include weight loss, CPAP and or dental appliance.
== END 2024-10-07 19:30 | disposition home or self-care (01) ==
LOC: SLEEP 19:32
PROVIDERS: PCP Physician Assistant Medical; Visit Provider Otolaryngology
DX: G47.33 Obstructive sleep apnea (adult) (pediatric) (principal)
CPT/HCPCS: 95806